=== PATIENT | male | born 1970 | race Caucasian/White ===

== ENCOUNTER 2018-06-17 17:41 | Inpatient (IN) | payer MEDICAID ==
[~2018-06-17] VITALS: Ht 167.6 cm; Wt 79.0 kg
[2018-06-17 19:56] VITALS: BP 116/76
[2018-06-17] MEDS ORDERED: GLUCOPHAGE1000 MG PO (19:58)
[2018-06-17 19:59] VITALS: BP 116/76
[2018-06-17] MEDS ORDERED: VALIUM 10MG10 MG/TAB PO (19:59)
[2018-06-17] MEDS ORDERED: VIMPAT200 MG PO (20:00)
[2018-06-17] MEDS ORDERED: PROAIR HFA0.09 MG/AC IH (20:00)
[2018-06-17] MEDS ORDERED: SOMA350 M1 PO (20:01)
[2018-06-17] MEDS ORDERED: ASPIR LOW81 MG PO (20:01)
[2018-06-17] MEDS ORDERED: NORVASC 5MG5 MG/TAB PO (20:02)
[2018-06-17 21:31] LABS: CALCIUM 7.9 mg/dL (8.4-10.2); POTASSIUM 3.2 mmol/L (3.6-5.0)
[2018-06-18] VITALS (7 sets, daily range): BP systolic 108–138; BP diastolic 64–89
[2018-06-18 06:31] LABS: HEMATOCRIT 37.6 % (42.0-52.0); HEMOGLOBIN 12.6 g/dL (13.5-18.0); MEAN CELL VOLUME 90 fl (78-100); MEAN CORPUSCULAR HEMOGLOBIN 30 pg (27-31); MEAN CORPUSCULAR HGB CONC 34 g/dL (33-37); MEAN PLATELET VOLUME 10.3 fl (7.4-10.4); PLATELET COUNT 193 K/mm3 (130-400); RED CELL DISTRIBUTION WIDTH 14.3 % (11.5-14.5)
[2018-06-18 06:53] LABS: POTASSIUM 3.3 mmol/L (3.6-5.0)
[2018-06-18 07:21] LABS: BAND 1 % (0-10); LYMPHOCYTE 7 % (20-51); MONOCYTE 1 % (3-10); NEUTROPHILS 87 % (42-75)
[2018-06-19 03:59] VITALS: BP 109/69
[2018-06-19 06:19] LABS: HEMATOCRIT 38.8 % (42.0-52.0); HEMOGLOBIN 13.2 g/dL (13.5-18.0); MEAN CELL VOLUME 88 fl (78-100); MEAN CORPUSCULAR HEMOGLOBIN 30 pg (27-31); MEAN CORPUSCULAR HGB CONC 34 g/dL (33-37); MEAN PLATELET VOLUME 10.3 fl (7.4-10.4); PLATELET COUNT 270 K/mm3 (130-400); RED CELL DISTRIBUTION WIDTH 14.2 % (11.5-14.5); WHITE BLOOD COUNT 13.1 K/mm3 (4.8-10.8)
[2018-06-19 06:36] VITALS: BP 130/82
[2018-06-19 06:39] LABS: LYMPHOCYTE 10 % (20-51); MONOCYTE 2 % (3-10); MYELOCYTE 1 % (0-0); NEUTROPHILS 86 % (42-75)
[2018-06-19 06:52] LABS: CALCIUM 8.6 mg/dL (8.4-10.2); POTASSIUM 3.4 mmol/L (3.6-5.0)
[2018-06-19 12:07] VITALS: BP 131/66
[2018-06-19] MEDS ORDERED: LEVAQUIN 750MG750 M1 PO (13:17)
[2018-06-19] MEDS ORDERED: PANTOPRAZOLE SO40 MG PO (13:19)
[2018-06-19] MEDS ORDERED: ACETAMINOPHEN-H1 TA2 PO (13:19)
[2018-06-19] MEDS ORDERED: IPRATROPIUM BROM3 M1 IH (13:20)
[2018-06-19] MEDS ORDERED: MUCINEX 60600 MG/TA1 PO (13:20)
[2018-06-19] MEDS ORDERED: PREDNISONE20 M1 PO (13:20)
[2018-06-19] MEDS ORDERED: ALBUTEROL2.5 MG/3 M IH (13:20)
[2018-06-19 15:07] VITALS: BP 117/74
== END 2018-06-19 15:16 | disposition home or self-care (01) | DRG 195 ==
LOC: MED/SURG 17:41
PROVIDERS: Nurse Practitioner Family; Physician Assistant; ADMIT Nurse Practitioner Primary Care
DX: J18.9 Pneumonia, unspecified organism (principal); G40.909 Epilepsy, unspecified, not intractable, without status epilepticus; Z79.84 Long term (current) use of oral hypoglycemic drugs; I10 Essential (primary) hypertension; J45.909 Unspecified asthma, uncomplicated; G89.29 Other chronic pain; Z87.891 Personal history of nicotine dependence; Z88.6 Allergy status to analgesic agent; Z88.0 Allergy status to penicillin; Z88.8 Allergy status to other drugs, medicaments and biological substances; E87.6 Hypokalemia; E11.65 Type 2 diabetes mellitus with hyperglycemia; R09.02 Hypoxemia; R00.0 Tachycardia, unspecified
CPT/HCPCS: J1650; J2930